=== PATIENT | female | born 1980 | race Caucasian/White ===

== ENCOUNTER 2021-10-27 07:10 | Day surgery (SDC) | payer OTHER ==
[2021-10-27] MEDS ORDERED: LIDOCAINE HCL 2% 100 MG/5 ML IJ ONE (07:11)
[2021-10-27] MEDS ORDERED: Lactated Ringers 1,000 ML IV ONE (08:16)
[2021-10-27] MEDS ORDERED: DIPRIVAN 200 MG/20 ML IV ONE (08:30)
--- NOTE | 2021-10-28 10:07 | XRAY ---
16 seconds fluoroscopy time in surgery for bilateral L4-S1 MBB.
--- NOTE | 2021-10-31 08:50 | XRAY ---
Indication: Bilateral L4-S1 MBB. Intraoperative fluoroscopy provided for 16 seconds. Single digital spot image submitted for interpretation demonstrates posterior needle tips projecting over the expected left and right L4-S1 nerve root. Correlate with intraoperative findings/report.
== END 2021-10-27 08:55 | disposition home or self-care (01) ==
LOC: SDC-PAIN 07:10
PROVIDERS: ATTEND Psychiatry & Neurology Pain Medicine
DX: M47.816 Spondylosis without myelopathy or radiculopathy, lumbar region (principal); E11.9 Type 2 diabetes mellitus without complications; Z79.899 Other long term (current) drug therapy
CPT/HCPCS: 64493; 64494; 72020; 77002; 82947; 84703; J2704

== ENCOUNTER 2022-01-11 11:49 | Day surgery (SDC) | payer OTHER ==
[2022-01-11] MEDS ORDERED: BUPIVACAINE 0.5% VIAL IJ ONE (11:50)
[2022-01-11] MEDS ORDERED: Lactated Ringers 1,000 ML IV ONE (13:57)
[2022-01-11] MEDS ORDERED: DIPRIVAN 200 MG/20 ML IV ONE (14:27)
--- NOTE | 2022-01-11 16:33 | XRAY ---
Indication: Bilateral L4-S1 MBB. Intraoperative fluoroscopy provided for 22 seconds. Single digital spot image submitted for interpretation demonstrates posterior needle tips projecting over the expected left and right L4-S1 nerve roots. Correlate with intraoperative findings/report.
--- NOTE | 2022-01-11 17:07 | XRAY ---
22 seconds of fluoroscopy was used in surgery for a bilateral L4-S1 MBB.
== END 2022-01-11 14:53 | disposition home or self-care (01) ==
LOC: SDC-PAIN 11:49
PROVIDERS: ATTEND Psychiatry & Neurology Pain Medicine
DX: M47.816 Spondylosis without myelopathy or radiculopathy, lumbar region (principal); E11.9 Type 2 diabetes mellitus without complications; Z79.899 Other long term (current) drug therapy
CPT/HCPCS: 64493; 64494; 72020; 77002; 82947; 84703; J2704

== ENCOUNTER 2022-02-01 07:27 | Day surgery (SDC) | payer OTHER ==
[2022-02-01] MEDS ORDERED: Depo-Medrol 40 MG/ML IM ONE (07:28)
[2022-02-01] MEDS ORDERED: Xylocaine 1% Vial 30 ML PF IJ ONE (07:28)
[2022-02-01] MEDS ORDERED: Marcaine Mpf 0.5% Vial 30 Ml IJ ONE (07:28)
[2022-02-01] MEDS ORDERED: DIPRIVAN 200 MG/20 ML IV ONE (08:11)
[2022-02-01] MEDS ORDERED: Lactated Ringers 1,000 ML IV ONE (08:57)
--- NOTE | 2022-02-01 10:27 | XRAY ---
Indication: Left L4-S1 RFA. Intraoperative fluoroscopy provided for 19 seconds. 3 digital spot image submitted for interpretation demonstrates posterior needle tips projecting over the expected left L4-S1 nerve roots. Correlate with intraoperative findings/report.
--- NOTE | 2022-02-01 10:30 | XRAY ---
19 seconds fluoroscopy time in surgery for left :L4-S1 RFA.
== END 2022-02-01 08:35 | disposition home or self-care (01) ==
LOC: SDC-PAIN 07:27
PROVIDERS: ATTEND Psychiatry & Neurology Pain Medicine
DX: M47.816 Spondylosis without myelopathy or radiculopathy, lumbar region (principal); E11.9 Type 2 diabetes mellitus without complications; Z79.899 Other long term (current) drug therapy
CPT/HCPCS: 64635; 64636; 72100; 77002; 82947; 84703; J1030; J2001; J2704

== ENCOUNTER 2022-02-08 08:44 | Day surgery (SDC) | payer OTHER ==
[2022-02-08] MEDS ORDERED: Marcaine Mpf 0.5% Vial 30 Ml IJ ONE (08:45)
[2022-02-08] MEDS ORDERED: Depo-Medrol 40 MG/ML IM ONE (08:45)
[2022-02-08] MEDS ORDERED: XYLOCAINE-MPF 1% 5ML SDV IJ ONE (08:45)
[2022-02-08] MEDS ORDERED: DIPRIVAN 200 MG/20 ML IV ONE (10:05)
[2022-02-08] MEDS ORDERED: Lactated Ringers 1,000 ML IV ONE (10:22)
--- NOTE | 2022-02-08 11:36 | XRAY ---
Indication: Right L4-S1 RFA. Intraoperative fluoroscopy provided for 23 seconds. 4 digital spot image submitted for interpretation demonstrates posterior needle tips projecting over the expected right L4-S1 nerve roots. Correlate with intraoperative findings/report.
--- NOTE | 2022-02-08 12:03 | XRAY ---
23 seconds of fluoroscopy was used in surgery for a right L4-S1 RFA.
== END 2022-02-08 10:38 | disposition home or self-care (01) ==
LOC: SDC-PAIN 08:44
PROVIDERS: ATTEND Psychiatry & Neurology Pain Medicine
DX: M47.816 Spondylosis without myelopathy or radiculopathy, lumbar region (principal); E11.9 Type 2 diabetes mellitus without complications; Z79.899 Other long term (current) drug therapy
CPT/HCPCS: 64635; 64636; 72100; 77002; 81025; 82947; J1030; J2704

== ENCOUNTER 2022-04-05 09:02 | Day surgery (SDC) | payer OTHER ==
[2022-04-05] MEDS ORDERED: Decadron 4 MG INJ IV ONE (09:03)
[2022-04-05] MEDS ORDERED: XYLOCAINE-MPF 1% 5ML SDV IJ ONE (09:03)
[2022-04-05] MEDS ORDERED: DIPRIVAN 200 MG/20 ML IV ONE (11:08)
[2022-04-05] MEDS ORDERED: Lactated Ringers 1,000 ML IV ONE (12:26)
--- NOTE | 2022-04-05 12:37 | XRAY ---
43 seconds fluoroscopy time in surgery for injection of the left piriformis muscle.
--- NOTE | 2022-04-05 12:38 | XRAY ---
Indication: Left piriformis muscle injection. Intraoperative fluoroscopy provided for 43 seconds. Single digital spot image submitted for interpretation demonstrates posterior needle tip projecting over the expected left piriformis muscle. Small amount of contrast injected for needle tip placement. Correlate with intraoperative findings/report.
== END 2022-04-05 11:29 | disposition home or self-care (01) ==
LOC: SDC-PAIN 09:02
PROVIDERS: ATTEND Psychiatry & Neurology Pain Medicine
DX: M79.18 Myalgia, other site (principal); E11.9 Type 2 diabetes mellitus without complications; Z79.899 Other long term (current) drug therapy
CPT/HCPCS: 20552; 72170; 77002; 81025; 82947; J1100; J2704; Q9966